=== PATIENT | female | born 1950 | race African-American/Black ===

== ENCOUNTER → 2020-05-22 | Day surgery (SDC) | payer MEDICARE, OTHER ==
[2020-05-17 16:17] LABS: BASOPHILS % 0.3 % (0.0-1.0); EOSINOPHILS # (AUTO) 0.1 (0.0-0.4); EOSINOPHILS % 1.9 % (0.0-6.0); HEMATOCRIT 40.3 % (34.2-44.1); HEMOGLOBIN 12.9 g/dL (12.0-16.0); LYMPHOCYTES # (AUTO) 2.4 (1.0-3.2); LYMPHOCYTES % 33.1 % (18.0-39.1); MEAN CORPUSCULAR HEMOGLOBIN 31.9 pg (28-32); MEAN CORPUSCULAR VOLUME 99.5 fL (81-99); MONOCYTES # (AUTO) 0.9 (0.2-0.8); MONOCYTES % 12.4 % (4.4-11.3); NEUTROPHILS # (AUTO) 3.8 (2.1-6.9); PLATELET COUNT 301 x10e3/uL (140-360); RED BLOOD COUNT 4.05 x10e6/uL (3.6-5.1); RED CELL DISTRIBUTION WIDTH 12.8 % (11.7-14.4)
[2020-05-17 16:34] LABS: ANION GAP 16.2 mmol/L (8-16); CALCIUM 9.9 mg/dL (8.4-10.2); CREATININE, SERUM 1.11 mg/dL (0.57-1.11); POTASSIUM 4.2 mmol/L (3.5-5.1)
--- NOTE | 2020-05-17 16:39 | Diagnostic Imaging Report ---
EXAMINATION: CHEST 2 VIEWS INDICATION: Pre-operative COMPARISON: None FINDINGS: LINES/TUBES:None LUNGS:The lungs are well-inflated. No focal consolidation or pulmonary edema. PLEURA:No pleural effusion or pneumothorax. MEDIASTINUM:The cardiomediastinal silhouette appears normal in size and shape. BONES/SOFT TISSUES:No acute osseous injury. ABDOMEN:No free air under the diaphragm. IMPRESSION: No focal pneumonia or pulmonary edema. Signed by: Sergio Oswald MD on 05/17/2020 4:36 PM
[~2020-05-22] MED LIST: ACETAMINOPHEN/CODEINE 300MG - 30MG TAB ONE; ATACAND8 MG PO; ATORVASTATIN CA20 MG PO; CEFAZOLIN SOD 1 GM/NS 50ML 50 ML IV ONE; ETOMIDATE 2 MG/ML 10 ML INJ IV ONE; FENOFIBRATE145 MG PO; FENTANYL CITRATE/PF 100MCG/2 ML INJ ONE; KETOROLAC TROMETHAMINE 30 MG/ML VIAL ONE; LIDOCAINE HCL 2% LOCAL INJ 5 ML SDV VIAL INJ ONE; METFORMIN HCL500 MG PO; METOPROLOL SUCC25 MG PO; ONDANSETRON HCL 4 MG ORAL DISINTEGRATING TAB ONE; ONDANSETRON HCL INJ 2MG/ML 2ML 2 MG/ML VIAL ONE; PIOGLITAZONE HC45 MG PO; PROPOFOL IV EMULSION 10 MG/ML 20 ML VIAL ONE; SEVOFLURANE INHAL SOLN 250 ML PEN BTL ONE
--- NOTE | 2020-05-22 07:51 | Operative Report ---
DATE OF PROCEDURE: 05/22/2020 SURGEON: Julio Shepard MD INSOLE AND HEEL STIFFENER: Vishal Mckinley, certified PA. PREOPERATIVE DIAGNOSIS: Right carpal tunnel syndrome, left 3rd trigger finger. POSTOPERATIVE DIAGNOSIS: Right carpal tunnel syndrome, left 3rd trigger finger. PROCEDURE: Right endoscopic carpal tunnel release, release of left 3rd trigger finger. INDICATIONS: The patient is a 69-year-old lady, who has clinic signs and symptoms consistent with recurrent left 3rd trigger finger and right carpal tunnel syndrome. She has failed conservative management and would like to proceed with definitive intervention. The risks and benefits of the surgery have been discussed. All of her questions have been answered. She states she understands and wishes to proceed. PROCEDURE IN DETAIL: The patient was brought to the operating room and placed under general anesthetic. Both upper extremities were prepped and draped in a sterile manner. A preoperative time-out was performed. Initial attention was directed towards the left upper extremity. An Esmarch was used to exsanguinate the arm and to provide a tourniquet. An incision was made over the distal palmar crease in line with the 3rd finger. The A1 susan was identified and incised with a 13-blade surgical knife. This was fully released with a pair of tenotomy scissors. The tendons were retracted from the wound and noted to have no further stenosing tenosynovitis. There was some fraying of the tendon. The incisions were closed with two interrupted nylon stitches. A sterile bandage was carefully applied. The Esmarch tourniquet was removed. Attention was directed towards the right upper extremity. This extremity was exsanguinated using an Esmarch and a proximal tourniquet was inflated to 250 mmHg. An incision was made over the flexion crease of the right wrist. The palmaris longus was retracted to the radial side of the wound. The flexor retinaculum was elevated and incised. An elevator was used to tease the tenosynovium off the undersurface of the transverse carpal ligament. Dilators were placed and the hook of the hamate was palpated. The MicroAire endoscope was placed into the carpal tunnel. The undersurface of the transverse carpal ligament was cleanly visualized without evidence of soft tissue interposition. The knife was deployed and the ligament was cut from distal to proximal. Care was taken to make sure that we completed a full-thickness cut. The proximal retinaculum was incised under direct visualization with a pair of tenotomies. Two interrupted nylon stitches were used to close the wound. A sterile bandage was applied and the tourniquet was deflated. She was extubated and transported to the recovery room in stable condition. There was no blood loss and all needle and sponge counts were correct. Julio Shepard MD DR/MÓNICA /[id number]
[2020-05-22 08:30] VITALS: BP 154/82
== END | disposition home or self-care (01) ==
LOC: OR 05:29
PROVIDERS: ATTEND Specialist
DX: G56.01 Carpal tunnel syndrome, right upper limb (principal); M65.332 Trigger finger, left middle finger; M19.90 Unspecified osteoarthritis, unspecified site; E78.5 Hyperlipidemia, unspecified; E11.9 Type 2 diabetes mellitus without complications; I10 Essential (primary) hypertension; E78.00 Pure hypercholesterolemia, unspecified; Z01.810 Encounter for preprocedural cardiovascular examination; Z01.812 Encounter for preprocedural laboratory examination; Z01.818 Encounter for other preprocedural examination; Z11.59 Encounter for screening for other viral diseases; Z79.84 Long term (current) use of oral hypoglycemic drugs; Z68.33 Body mass index [BMI] 33.0-33.9, adult; Z87.891 Personal history of nicotine dependence
CPT/HCPCS: 26055; 29848; 36415 ×2; 71046; 80048; 82948; 85025; 93005; J0690; J1885; J2001; J2405; J2704; J3010; Q0162; U0002